=== PATIENT | female | born 1985 | race Caucasian/White ===

== ENCOUNTER 2021-05-28 11:42 | Observation (INO) ==
[2021-05-28] MEDS ORDERED: Famotidine 20 MG/2 ML VIAL IVP ONE (13:22)
[2021-05-28] MEDS ORDERED: 0.9 % Sodium Chloride 1,000 ML IVC ONE (13:22)
[2021-05-28] MEDS ORDERED: Ondansetron 4 MG/2 ML VIAL IVP ONE (13:23)
[2021-05-28 13:56] LABS: Basophils # 0.1 K/mcL (0.0-0.2); Eosinophils # 0.1 K/mcL (0.0-0.6); Eosinophils % 0.6 %; Hematocrit 38.6 % (35.3-44.9); Hemoglobin 11.8 g/dL (11.5-15.4); Immature Granulocytes % 0.4 % (0-4); Lymphocytes # 1.8 K/mcL (0.6-4.6); Mean Corpuscular HGB Conc 30.6 g/dL (31.6-35.5); Mean Corpuscular Hemoglobin 26.9 pg (28.0-33.3); Mean Corpuscular Volume 88.1 fL (83.0-100.0); Mean Platelet Volume 9.9 fL (9.4-12.4); Monocytes # 0.5 K/mcL (0.0-1.3); Neutrophils # 7.9 K/mcL (1.6-8.9); Platelet Count 441 K/mcL (140-400); Red Blood Count 4.38 M/mcL (3.82-4.97); White Blood Count 10.3 K/mcL (4.3-11.1)
[2021-05-28 13:58] LABS: Bilirubin,Urine Negative (Negative); Blood,Urine Negative (Negative); Clarity,Urine Clear (Clear); Color,Urine Light-Yellow (Yellow); Glucose,Urine (UA) Normal (Normal); Ketones,Urine Negative (Negative); Leukocyte Esterase,Urine Negative (Negative); Nitrite,Urine Negative (Negative); Protein,Urine Trace mg/dL (Neg-Trace); Specific Gravity,Urine 1.022 (1.010-1.025); Urobilinogen,Urine Normal (Normal)
[2021-05-28] MEDS ORDERED: VANCOMYCIN IVPB ONE (14:00)
[2021-05-28] MEDS ORDERED: Vancomycin 1,500 MG/265 ML IV.SOLN IVPB ONE (14:05)
[2021-05-28 14:14] LABS: BUN/Creatinine Ratio 13 (6-26); Blood Urea Nitrogen 10 mg/dL (6-20); Calcium 9.1 mg/dL (8.6-10.3); Carbon Dioxide 25 mEq/L (23-29); Chloride 104 mEq/L (98-107); Glucose 138 mg/dL (70-105); Osmolality,Calculated 285 (280-300); Potassium 3.7 mEq/L (3.5-5.1); Sodium 137 mEq/L (136-145); eGFR For African Americans > 60 (> 60); eGFR For Non-African Americans > 60 (> 60)
[2021-05-28] MEDS ORDERED: Metoclopramide 10 MG/2 ML VIAL IVP ONE (15:20)
[2021-05-28] MEDS ORDERED: lisinopriL 10 MG TABLET PO STA (15:21)
[2021-05-28] MEDS ORDERED: Melatonin 3 MG TABLET PO PRN (16:24)
[2021-05-28] MEDS ORDERED: Naloxone 0.4 MG/ML INJ IVP PRN (16:24)
[2021-05-28] MEDS: Pantoprazole 40 MG VIAL IVP SCH (18:13)
[2021-05-28] MEDS: *HR* HYDROcodone/Acet 5/325 mg TABLET PO PRN (20:51)
[2021-05-28] MEDS ORDERED: Ondansetron 4 MG/2 ML VIAL IVP PRN (21:53)
[2021-05-29] MEDS: Pantoprazole 40 MG VIAL IVP SCH (05:21)
[2021-05-29 06:27] LABS: Basophils # 0.1 K/mcL (0.0-0.2); Basophils % 1.1 %; Eosinophils # 0.3 K/mcL (0.0-0.6); Eosinophils % 3.7 %; Hematocrit 32.8 % (35.3-44.9); Immature Granulocytes % 0.4 % (0-4); Lymphocytes # 2.8 K/mcL (0.6-4.6); Lymphocytes % 38.2 %; Mean Corpuscular HGB Conc 30.8 g/dL (31.6-35.5); Mean Corpuscular Volume 87.7 fL (83.0-100.0); Mean Platelet Volume 10.2 fL (9.4-12.4); Monocytes # 0.5 K/mcL (0.0-1.3); Monocytes % 6.7 %; Neutrophils # 3.7 K/mcL (1.6-8.9); Platelet Count 401 K/mcL (140-400); Red Blood Count 3.74 M/mcL (3.82-4.97); Red Cell Distribution Width 13.1 % (11.5-14.5); Segmented Neutrophils % 49.9 %; White Blood Count 7.3 K/mcL (4.3-11.1)
[2021-05-29 06:30] VITALS: TEMP 97.5
[2021-05-29] MEDS ORDERED: Levothyroxine 25 MCG TABLET PO SCH (06:30)
[2021-05-29 06:31] LABS: Hemoglobin 10.1 g/dL (11.5-15.4)
[2021-05-29 06:45] LABS: INR 1.1; Prothrombin Time 12.6 Seconds (9.4-12.1)
[2021-05-29 06:49] LABS: % Iron Saturation 17 % (15-50); Iron 61 mcg/dL (50-170); Transferrin 251 mg/dL (203-362)
[2021-05-29 07:03] LABS: Ferritin 32 ng/mL (10-120)
[2021-05-29] MEDS: *HR* HYDROcodone/Acet 5/325 mg TABLET PO PRN (08:39)
[2021-05-29] MEDS ORDERED: lisinopriL 20 MG TABLET PO SCH (09:00)
[2021-05-29 09:43] LABS: Hematocrit 33.1 % (35.3-44.9); Hemoglobin 10.8 g/dL (11.5-15.4)
[2021-05-29 11:08] VITALS: BP 124/81; PULSE 62; O2SAT 95
== END 2021-05-29 11:35 | disposition home or self-care (01) ==
LOC: 3BNU 11:42 → EMEROOARM 11:42 → SUATTDRO 16:09 → 3BNU 16:42
PROVIDERS: ADMIT Student in an Organized Health Care Education/Training Program; ATTEND Internal Medicine